=== PATIENT | male | born 1945 | race Caucasian/White ===

== ENCOUNTER → 2016-09-16 | Outpatient (CLI) | payer OTHER | LOC: CIMAGING 16:33 | PROVIDERS: ATTEND Family Medicine | DX: M51.34 Other intervertebral disc degeneration, thoracic region (principal) | CPT/HCPCS: 72070-PO ==

== ENCOUNTER 2016-09-18 15:28 | Emergency (ER) | payer OTHER ==
[2016-09-18 15:44] VITALS: BP 139/83; PULSE 76; RESP 18; TEMP 98.4; O2SAT 95
[2016-09-18] MEDS ORDERED: IBUPROFEN 200 MG TAB PO ONE (16:14)
[2016-09-18] MEDS ORDERED: HYDROCODONE/APAP 5/325 TAB PO ONE (16:56)
[2016-09-18] MEDS ORDERED: HYDROCOD/APAP 5/325 PREPACK#6 BTL TAKEHOME ONE (16:56)
--- NOTE | 2016-09-18 17:02 | UCPHY ---
H & P Time Seen by Provider: 09/18/16 15:50 Patient Type: New HPI/ROS: This patient fell 4 1/2 feet from a fence to his left lateral ribs at home when he slipped 1 week ago. He had immediate moderate to severe pain lateral 6 8th rib region is been tolerating that pretty well until the past 12 hours or so. He explains that he coughed the has been coughing intermittently over the past few days had abrupt worsening of the pain this morning with a cough and now complains of 8/10 pain with deep breath to the left lateral chest wall and lung region. Pain again worsens with deep breath or movement with no other exacerbating factors noted except for mild relief from Aleve. His last dose of alleve was yesterday. ROS: No high fevers or chills. No other constitutional symptoms. HEENT: No nasal congestion. No head injury from the event. Musculoskeletal: No neck pain or other extremity injuries. Pulmonary: No respiratory distress. Hemoptysis. GI: No belly pain. No vomiting. 10 point ROS is otherwise negative. Past Medical/Surgical History: He works at[employer] for 20 years and gets frequent pneumonia per his . Smoking Status: Never smoked Physical Exam: General Appearance: Alert, no distress. Eyes: Pupils equal and round no pallor or injection. ENT, Mouth: Mucous membranes moist. Neck: No midline tenderness. Respiratory: Fine, Mild rales bilateral bases. This seems symmetric he has exquisite tenderness to the left 6th 8th rib region with no crepitance noted. Cardiovascular: Regular rate and rhythm. No murmur gallop rub. Gastrointestinal: Abdomen is soft and nontender, no masses, bowel sounds normal. Back: No midline tenderness at the spine. Neurological: Alert with no focal deficits. Skin: Warm and dry, no rashes. Musculoskeletal: Neck is supple nontender. Extremities are symmetrical, full range of motion. Psychiatric: Mood and affect are normal DIFFERENTIAL DIAGNOSIS: After history and physical exam differential diagnosis was considered for rib fracture, pneumonia, pneumothorax, hemothorax Constitutional: Initial Vital Signs Temperature (C) 36.9 C 09/18/16 15:42 Heart Rate 76 09/18/16 15:42 Respiratory Rate 18 09/18/16 15:42 Blood Pressure 139/83 H 09/18/16 15:42 O2 Sat (%) 95 09/18/16 15:42 O2 Delivery Mode Room Air Allergies/Adverse Reactions: amoxicillin Allergy (Verified 09/18/16 15:41) Home Medications: Medication Instructions Recorded Bp Med 09/18/16 Cholesterol Pill 09/18/16 Hydrocodone/APAP 5/325 [[place] 1 - 2 tab PO Q4PRN PRN #12 tab 09/18/16 5/325 (*)] Lexapro 10 MG 09/18/16 Prednisone 09/18/16 levOFLOXACIN [Levaquin] 500 mg PO DAILY #6 tablet 09/18/16 MDM/Departure - MDM Diagnostics: Chest x-ray: No rib fractures appreciated by my interpretation. No pneumothorax. Patient has a left lingular region atelectasis versus infiltrate and prominent anterior fat pad. I discussed this with Dr. Ford-radiologist who confirms the same read. Medications Given: Discontinued Medications Hydrocodone Bitart/Acetaminophen ([place] 5/325mg Prepack#6) 1 btl TAKEHOME EDNOW ONE Stop: 09/18/16 16:57 Last Admin: 09/18/16 17:05 Dose: 1 btl Hydrocodone Bitart/Acetaminophen ([place] 5/325) 1 tab PO EDNOW ONE Stop: 09/18/16 16:57 Last Admin: 09/18/16 17:05 Dose: 1 tab Ibuprofen (Motrin) 600 mg PO EDNOW ONE Stop: 09/18/16 16:15 Last Admin: 09/18/16 16:19 Dose: 600 mg Levofloxacin (Levaquin) 500 mg PO EDNOW ONE PRN Reason: Protocol Stop: 09/18/16 16:57 Last Admin: 09/18/16 17:05 Dose: 500 mg ED Course/Re-evaluation: Patient appears well clinically with normal vital signs. However given his history of frequent pneumonia past in potential early consolidation on the left side of worsening symptoms will cover him for potential early pneumonia. Counseled patient and his regarding this. He is given a 1st dose of Levaquin and Vicodin for pain control. I counseled regarding the importance of pulmonary toilet-deep breaths every 5- 10 minutes - Depart Disposition: Home, Routine, Self-Care Clinical Impression: Rib injury Pneumonia Qualifiers: Pneumonia type: due to unspecified organism Laterality: left Lung location: lower lobe of lung Qualified Code(s): J18.1 - Lobar pneumonia, unspecified organism Condition: Good Instructions: Rib Fracture (ED), Community Acquired Pneumonia (ED) Additional Instructions: Diagnoses: 1. Rib injury 2. Pneumonia Plan: Take a deep breath every 5-10 minutes despite the pain. Take Vicodin if needed for pain control or Tylenol. No driving, alcohol or come Vicodin Take a stool softener on Vicodin prevent constipation. Levaquin antibiotic as prescribed. Go to the emergency department for any significant worsening symptoms despite the treatment plan Prescriptions: Hydrocodone/APAP 5/325 [[place] 5/325 (*)] 1 - 2 tab PO Q4PRN PRN #12 tab PRN Reason: Pain levOFLOXACIN [Levaquin] 500 mg PO DAILY #6 tablet Referrals: Joe Rodriguez MD [Primary Care Provider] - As per Instructions - PQRS PQRS Measurement: 134: Depression screening and followup, PRIME MD-PHQ2 (12 years and older) Over the last 2 weeks, how often have you been bothered by any of the following problems? 1. Feeling down, depressed, or hopeless? 2. Little interest or pleasure in doing things? Patient answered no to both 1 and 2 130: Documentation of medications. Reviewed all patient medications, doses, route and frequency. 226: Do you smoke? [No.] 47: 65 and older: Advanced care planning. Patient designates surrogate decision maker as spouse 51: 18 years old and older with diagnosis of COPD, spirometry performance. NA 52: 18 years old and older with COPD and symptoms of COPD or FEV1<60% predicted prescribed a B Agonist. NA
== END 2016-09-18 17:15 | disposition home or self-care (01) ==
LOC: CED 15:28
DX: S29.9XXA Unspecified injury of thorax, initial encounter (principal); J18.1 Lobar pneumonia, unspecified organism; W01.0XXA Fall on same level from slipping, tripping and stumbling without subsequent striking against object, initial encounter; Y92.019 Unspecified place in single-family (private) house as the place of occurrence of the external cause
CPT/HCPCS: 71020; G0463; 99203-PO